=== PATIENT | male | born 1985 ===

== ENCOUNTER 2020-07-20 17:29 | Emergency (ER) | payer OTHER, SELFPAY ==
[2020-07-20 17:35] VITALS: BP 131/65; PULSE 105; RESP 12; TEMP 36.6; O2SAT 99
[2020-07-20 19:58] VITALS: BP 133/60; PULSE 66; O2SAT 100
--- NOTE | 2020-07-20 21:40 | ED_ITS ---
HPI - Abdominal Pain General Chief Complaint: Abdominal Pain Stated Complaint: hemmorroids Time Seen by Provider: 07/20/20 21:40 Source: patient Mode of arrival: Ambulatory Limitations: no limitations History of Present Illness HPI narrative: The patient has been experiencing intermittent bright red blood per rectum for over a year. He has had bleeding with BMs for the last 2 days. He has had blood previously intermixed with BMs, blood currently outside of BMs. He is drinking lot of water, he is on a high-fiber diet. He denies suffering from constipation. He felt a lump in the perirectal area today. He has no associated abdominal pain. He has no urinary symptoms. He has no nausea, vomiting. He has no diarrhea, and again, denies constipation. He is on no medications. He is generally healthy. Related Data Previous Rx's Medication Instructions Recorded hydrocortisone acetate [Anusol-HC] 25 mg [place] TID 14 Days each 07/20/20 Allergies Allergy/AdvReac Type Severity Reaction Status Date / Time No Known Drug Allergies Allergy Verified 07/20/20 17:44 Review of Systems Constitutional Constitutional: Denies chills, Denies fever(s) and Denies weakness Gastrointestinal Gastrointestinal: Denies abdominal pain, Denies change in bowel habits, Denies diarrhea, Denies nausea and Denies vomiting Comments: Possible hemorrhoid, see HPI. Genitourinary Comments: No complaints. Integumentary/Breasts Skin/Breast: Denies pruritus, Denies erythema, Denies rash and Denies wounds Neurologic Neurologic: Denies weakness Patient History Medical History (Updated 07/20/20 @ 23:47 by Clay Neves MD) No chronic diseases present (Acute) Surgical History (Updated 07/20/20 @ 23:44 by Clay Neves MD) No significant past surgical history (Acute) Social History Smoking Status: Never smoker Smoking Status: Never smoker Substance Use Type: marijuana Exam Initial Vital Signs Initial Vital Signs: Vital Signs Temperature 97.8 F 07/20/20 17:35 Pulse Rate 105 H 07/20/20 17:35 Respiratory Rate 12 07/20/20 17:35 Blood Pressure 131/65 07/20/20 17:35 Pulse Oximetry 99 07/20/20 17:35 Const General: cooperative and well developed Nutritional Appearance: well nourished GI Inspection: non-distended Palpation: soft, no hepatosplenomegaly, No guarding and No tender Auscultation: normal bowel sounds Rectal Exam: abnormal sphincter tone, No fissure and hemorrhoids (Perirectal skin tag, small internal hemorrhoids.) Course Course Course Narrative: Labs of a reviewed and are reassuring. He will referred to surgery for evaluation. Orders Ordered: ED Orders 07/20/20 22:11 Basic Metabolic Panel Stat Complete Blood Count AUTO DIFF Stat Vital Signs Vital signs: Vital Signs - 8 hr 07/20/20 17:35 07/20/20 19:58 07/20/20 22:13 Temperature 97.8 F Pulse Rate 105 H 66 63 Respiratory Rate 12 Blood Pressure 131/65 133/60 108/64 Pulse Oximetry 99 100 97 MDM - Abdominal Pain Lab Data Result diagrams: 07/20/20 22:11 07/20/20 22:11 Labs: Lab Results 07/20/20 07/20/20 Range/Units 22:11 22:11 WBC 5.6 (4.5-11.0) X10^3/uL RBC 4.31 L (4.5-5.9) X10^6/uL Hgb 13.2 L (13.5-17.5) g/dL Hct 38.9 L (41-53) % MCV 90.3 (80-100) fL MCH 30.6 (26-34) PG MCHC 33.9 (30-36) % RDW 12.7 (11.6-14.8) % Plt Count 246 (150-400) X10^3/uL Neut % (Auto) 42.9 L (50-75) % Lymph % (Auto) 44.9 H (25-40) % Jefferson % (Auto) 10.4 (3-14) % Eos % (Auto) 1.1 L (2-4) % Baso % (Auto) 0.7 (0-2) % Neut # (Auto) 2400 (9271-6069) /uL Lymph # (Auto) 2500 (5608-5088) /uL Jefferson # (Auto) 600 (0-900) /uL Eos # (Auto) 100 (0-450) /uL Baso # (Auto) 0 (0-100) /uL Sodium 138 (137-145) mmol/L Potassium 3.7 (3.4-5.1) mmol/L Chloride 106 (98-107) mmol/L Carbon Dioxide 27 (22-32) mmol/L BUN 12 (9-20) mg/dL Creatinine 0.61 L (0.66-1.25) mg/dL Estimated GFR > 60.0 (>60) mL/min BUN/Creatinine Ratio 19.7 (6-22) Glucose 94 (70-100) mg/dL Calcium 8.5 (8.4-10.2) mg/dL Discharge Plan Departure Patient Disposition: Home Clinical Impression: Hemorrhoids, internal, Skin tag of perianal region GI (gastrointestinal bleed) Qualifiers: GI bleed type/associated pathology: unspecified gastrointestinal hemorrhage type Qualified Code(s): K92.2 - Gastrointestinal hemorrhage, unspecified Instructions: DI for Hemorrhoids Activity Restrictions/Additional Instructions: Anusol HC suppositories 3 times daily as prescribed. Continue to drink a lot a water, stay on a high-fiber diet. I referred you to surgery, Dr. Abdi, for repeat evaluation. Return the ER as needed. Prescriptions: New hydrocortisone acetate [Anusol-HC] 25 mg suppository 25 mg [place] TID 14 Days RF: 0 Referrals: Herrera Abdi MD [Physician] -
[2020-07-20 22:13] VITALS: BP 108/64; PULSE 63; O2SAT 97
[2020-07-20 22:21] LABS: Add Manual Diff / Slide Review NO; Basophils Absolute Auto 0 /uL (0-100); Basophils Percent Auto 0.7 % (0-2); Eosinophils Absolute Auto 100 /uL (0-450); Eosinophils Percent Auto 1.1 % (2-4); Hematocrit 38.9 % (41-53); Hemoglobin 13.2 g/dL (13.5-17.5); Lymphocytes Absolute Auto 2500 /uL (1100-4500); Lymphocytes Percent Auto 44.9 % (25-40); Mean Corpuscular HGB Conc 33.9 % (30-36); Mean Corpuscular Hemoglobin 30.6 PG (26-34); Mean Corpuscular Volume 90.3 fL (80-100); Monocytes Absolute Auto 600 /uL (0-900); Monocytes Percent Auto 10.4 % (3-14); Neutrophils Absolute Auto 2400 /uL (1500-7000); Neutrophils Percent Auto 42.9 % (50-75); Platelet Count 246 X10^3/uL (150-400); Red Blood Cell Count 4.31 X10^6/uL (4.5-5.9); Red Cell Distribution Width 12.7 % (11.6-14.8); White Blood Cell Count 5.6 X10^3/uL (4.5-11.0)
[2020-07-20 22:34] LABS: BUN Creatinine Ratio 19.7 (6-22); Blood Urea Nitrogen 12 mg/dL (9-20); Calcium 8.5 mg/dL (8.4-10.2); Carbon Dioxide 27 mmol/L (22-32); Chloride 106 mmol/L (98-107); Estimated Glomerular Filt Rate > 60.0 mL/min (>60); Glucose 94 mg/dL (70-100); HEMOLYSIS < 15 (0-50); Potassium 3.7 mmol/L (3.4-5.1); Sodium 138 mmol/L (137-145)
[2020-07-20 23:57] VITALS: BP 119/56; PULSE 60; RESP 17; O2SAT 97
== END 2020-07-20 23:59 | disposition home or self-care (01) ==
PROVIDERS: Emergency Provider Emergency Medicine
DX: K64.8 Other hemorrhoids (principal); K64.4 Residual hemorrhoidal skin tags; K92.2 Gastrointestinal hemorrhage, unspecified
CPT/HCPCS: 80048; 85025; 99281; 99283